=== PATIENT | female | born 2000 | race Two or more races ===

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

== ENCOUNTER 2022-07-06 11:44 | Emergency (ER) | payer MEDICAID | END 2022-07-06 12:45 | disposition home or self-care (01) | LOC: JP.ED 11:44 | DX: R10.9 Unspecified abdominal pain (principal); K21.9 Gastro-esophageal reflux disease without esophagitis; Z79.899 Other long term (current) drug therapy | CPT/HCPCS: 99283 ==

== ENCOUNTER 2023-03-23 00:36 | Emergency (ER) | payer MEDICAID, OTHER ==
[2023-03-23] MEDS ORDERED: Sodium Chloride 0.9% 1,000 ML IV ONE (00:39)
[2023-03-23] MEDS ORDERED: Naloxone 0.4 MG/ML SDV IVPUSH PRN (00:40)
[2023-03-23 00:51] LABS: BASOPHILS ABSOLUTE AUTO 0.09 K/uL (0.00-0.10); BASOPHILS PERCENT AUTO 0.8 % (0.1-1.3); EOSINOPHILS PERCENT AUTO 0.2 % (0.0-5.4); HEMATOCRIT 39.5 % (34.3-46.0); HEMOGLOBIN 13.7 g/dL (11.2-15.5); IMMATURE GRAN ABSOLUTE AUTO 0.04 K/uL (0.00-0.23); IMMATURE GRAN PERCENT AUTO 0.4 % (0.0-0.7); LYMPHOCYTES ABSOLUTE AUTO 2.37 K/uL (0.8-3.3); LYMPHOCYTES PERCENT AUTO 21.4 % (11.4-47.7); MEAN CORPUSCULAR HEMOGLOBIN 31.2 pg (31.6-35.5); MEAN CORPUSCULAR HGB CONC 34.7 g/dL (31.6-35.5); MONOCYTES ABSOLUTE AUTO 0.82 K/uL (0.20-0.90); MONOCYTES PERCENT AUTO 7.4 % (3.3-12.6); NEUTROPHILS ABSOLUTE AUTO 7.74 K/uL (1.0-7.6); NEUTROPHILS PERCENT AUTO 69.8 % (40.0-78.1); PLATELET COUNT,PLT 370 K/uL (130-375); RED BLOOD CELL COUNT 4.39 M/uL (3.77-5.24); WHITE BLOOD CELL COUNT,WBC 11.1 K/uL (3.2-11.0)
[2023-03-23] MEDS ORDERED: Ondansetron 4 MG/2 ML SDV IVPUSH ONE (00:52)
[2023-03-23] MEDS ORDERED: droPERidol 5 MG/2 ML SDV IVPUSH ONE (00:53)
[2023-03-23 00:59] LABS: EOSINOPHILS ABSOLUTE AUTO 0.02 K/uL (0.00-0.40)
[2023-03-23 01:02] LABS: BLOOD UREA NITROGEN,BUN 13 mg/dL (7-18); CALCIUM 9.1 mg/dL (8.5-10.1); CARBON DIOXIDE,CO2 22 mmol/L (21-32); CHLORIDE,CL 101 mmol/L (100-108); CREATININE 0.7 mg/dL (0.6-1.0); ESTIMATED GFR 127 mL/min (>60); GLUCOSE RANDOM 97 mg/dL (74-106); SODIUM,NA 138 mmol/L (140-148)
== END 2023-03-23 02:14 ==
LOC: JP.ED 00:36 → EDBD 00:36 → MERGE 00:36 → JP.ED 02:14
DX: F19.10 Other psychoactive substance abuse, uncomplicated (principal); F17.210 Nicotine dependence, cigarettes, uncomplicated; J45.909 Unspecified asthma, uncomplicated; Z79.899 Other long term (current) drug therapy
CPT/HCPCS: 36415; 80048; 85025; 93005; 96361; 96374; 96375; 99284; J1790; J2310; J7030

== ENCOUNTER 2023-03-25 15:54 | Emergency (ER) | payer MEDICAID ==
[2023-03-25] MEDS ORDERED: Acetaminophen 500 MG Tab PO ONE (17:37)
== END 2023-03-25 18:55 | disposition home or self-care (01) ==
LOC: JP.ED 15:54
DX: S93.401A Sprain of unspecified ligament of right ankle, initial encounter (principal); F17.210 Nicotine dependence, cigarettes, uncomplicated; K21.9 Gastro-esophageal reflux disease without esophagitis; J45.909 Unspecified asthma, uncomplicated; Z79.899 Other long term (current) drug therapy; W10.9XXA Fall (on) (from) unspecified stairs and steps, initial encounter
CPT/HCPCS: 73610; 99284; A9270

== ENCOUNTER 2025-04-01 20:22 | Emergency (ER) | payer MEDICAID ==
[2025-04-01 21:00] LABS: BASOPHILS ABSOLUTE AUTO 0.05 K/uL (0.00-0.10); BASOPHILS PERCENT AUTO 0.3 % (0.1-1.3); EOSINOPHILS PERCENT AUTO 0.1 % (0.0-5.4); IMMATURE GRAN ABSOLUTE AUTO 0.09 K/uL (0.00-0.23); IMMATURE GRAN PERCENT AUTO 0.5 % (0.0-0.7); LYMPHOCYTES ABSOLUTE AUTO 2.03 K/uL (0.8-3.3); LYMPHOCYTES PERCENT AUTO 10.6 % (11.4-47.7); MONOCYTES ABSOLUTE AUTO 0.73 K/uL (0.20-0.90); MONOCYTES PERCENT AUTO 3.8 % (3.3-12.6); NEUTROPHILS ABSOLUTE AUTO 16.22 K/uL (1.0-7.6); NEUTROPHILS PERCENT AUTO 84.7 % (40.0-78.1); PLATELET COUNT,PLT 353 K/uL (130-375); RED BLOOD CELL COUNT 4.58 M/uL (3.77-5.24); WHITE BLOOD CELL COUNT,WBC 19.1 K/uL (3.2-11.0)
[2025-04-01 21:03] LABS: EOSINOPHILS ABSOLUTE AUTO 0.01 K/uL (0.00-0.40)
[2025-04-01] MEDS: Ondansetron 4 MG/2 ML SDV IVPUSH ONE (21:07)
[2025-04-01 21:22] LABS: A/G RATIO 1.5 (1.2-2.2); ALANINE AMINOTRANSFERASE,ALT 15 U/L (12-78); ASPARTATE AMNIOTRANSFERASE,AST 10 U/L (15-37); BILIRUBIN TOTAL 0.7 mg/dL (0.2-1.0); BLOOD UREA NITROGEN,BUN 7 mg/dL (7-18); CARBON DIOXIDE,CO2 24 mmol/L (21-32); CHLORIDE,CL 99 mmol/L (100-108); CREATININE 0.7 mg/dL (0.6-1.0); EST CRCL DRUG DOSING (CG) 107.93 mL/min; ESTIMATED GFR 125 mL/min (>60); GLUCOSE RANDOM 137 mg/dL (74-106); POTASSIUM,K 3.3 mmol/L (3.6-5.2); PROTEIN TOTAL,TP 8.1 g/dL (6.4-8.2); SODIUM,NA 137 mmol/L (140-148)
[2025-04-01] MEDS: Prochlorperazine 10 MG/2 ML SDV IVPUSH ONE (21:39)
== END 2025-04-01 23:00 | disposition home or self-care (01) ==
LOC: JP.ED 20:22
DX: O21.0 Mild hyperemesis gravidarum (principal); J45.909 Unspecified asthma, uncomplicated; F17.200 Nicotine dependence, unspecified, uncomplicated; Z79.899 Other long term (current) drug therapy; Z79.51 Long term (current) use of inhaled steroids
CPT/HCPCS: 36415; 80053; 83690; 84703; 85025; 93005; 96361; 96374; 96375; 99284; J0780; J2405; J7030

== ENCOUNTER 2025-04-03 14:04 | Emergency (ER) | payer MEDICAID | END 2025-04-03 14:47 | disposition left against medical advice (07) | LOC: JP.ED 14:04 | DX: Z53.21 Procedure and treatment not carried out due to patient leaving prior to being seen by health care provider (principal) ==

== ENCOUNTER 2025-04-09 09:46 | Emergency (ER) | payer MEDICAID | END 2025-04-09 10:52 | disposition left against medical advice (07) | LOC: JP.ED 09:46 | DX: Z53.21 Procedure and treatment not carried out due to patient leaving prior to being seen by health care provider (principal) ==